=== PATIENT | male | born 1990 | race Caucasian/White ===

== ENCOUNTER 2021-01-06 01:22 | Emergency (ER) | payer MEDICAID, OTHER ==
--- NOTE | 2021-01-06 01:37 | NUR ---
NO ANSWER MULTIPLE TIMES FOR CIPRIANO.
--- NOTE | 2021-01-06 01:51 | NUR ---
CALLED PT AGAIN. NOT IN LOBBY
--- NOTE | 2021-01-06 02:01 | NUR ---
CALLED PT MULTIPLE TIMES NO ANSWER. PRESUMED PT LWBS.
== END 2021-01-06 02:03 | disposition left against medical advice (07) ==
LOC: ED 01:45
DX: M25.512 Pain in left shoulder (principal); Z53.21 Procedure and treatment not carried out due to patient leaving prior to being seen by health care provider